=== PATIENT | female | born 1990 | race African-American/Black ===

== ENCOUNTER 2016-10-24 15:37 | Emergency (ER) | payer OTHER ==
[~2016-10-24] VITALS: Ht 160 cm; Wt 66.5 kg
[~2016-10-24 15:37] MED LIST: ATIVAN1 MG PO; BACTRIM,SEPT1 TABLET PO; DILAUDID2 MG PO; KEFLEX500 MG PO; NO HOME MEDS; NORCO 5/3251 TABLET PO; PERCOCET 5/31 TABLET PO; PREDNISONE20 MG PO; TRI-PREVIFEM1 EACH PO; VENTOLIN HFA18 GM IH; XEROFORM PETRO1 EAC4 TP; ZOFRAN ODT4 MG PO
[2016-10-24 15:57] VITALS: BP 143/98
[2016-10-24] MEDS ORDERED: TRI-ESTARYLLA1 EACH PO (18:41)
[2016-10-24] MEDS ORDERED: NORCO 7.5/321 TABLET PO (19:03)
[2016-10-24] MEDS ORDERED: MOTRIN800 MG PO (19:03)
[2016-10-24] MEDS ORDERED: VIBRAMYCIN100 MG PO (19:03)
== END 2016-10-24 19:43 | disposition home or self-care (01) ==
LOC: EME 15:37
PROC: 0H9CXZZ Drainage of Left Upper Arm Skin, External Approach (ICD-10-PCS; principal; 2016-10-24)
DX: L73.2 Hidradenitis suppurativa (principal)
CPT/HCPCS: 87070; 87075; 87076; 87205; 99281; 99284

== ENCOUNTER 2016-10-26 10:02 | Emergency (ER) | payer OTHER ==
[~2016-10-26] VITALS: Ht 160 cm; Wt 66.5 kg
[~2016-10-26 10:02] MED LIST changes: +MOTRIN800 MG PO; +NORCO 7.5/321 TABLET PO; +TRI-ESTARYLLA1 EACH PO; +VIBRAMYCIN100 MG PO
[2016-10-26 10:14] VITALS: BP 125/73
== END 2016-10-26 11:54 | disposition home or self-care (01) ==
LOC: EME 10:02
DX: Z48.01 Encounter for change or removal of surgical wound dressing (principal); L02.412 Cutaneous abscess of left axilla; Z72.0 Tobacco use
CPT/HCPCS: 99281; 99283

== ENCOUNTER 2017-01-08 09:55 | Day surgery (SDC) | payer OTHER ==
[~2017-01-08] VITALS: Ht 162.6 cm; Wt 66.7 kg
[~2017-01-08 09:55] MED LIST changes: +ORTHO CYCLEN1 TABLET PO
[2017-01-08 10:24] VITALS: BP 103/69
[2017-01-08] MEDS ORDERED: PERCOCET 5/31 TABLET PO (14:13)
[2017-01-08 15:00] VITALS: BP 108/69
[2017-01-08 15:25] VITALS: BP 111/69
== END 2017-01-08 15:38 | disposition home or self-care (01) ==
LOC: SDC 09:55
PROC: 0JBF0ZZ Excision of Left Upper Arm Subcutaneous Tissue and Fascia, Open Approach (ICD-10-PCS; principal; 2017-01-08)
DX: L73.2 Hidradenitis suppurativa (principal); G47.30 Sleep apnea, unspecified; J45.909 Unspecified asthma, uncomplicated; Z72.0 Tobacco use; Z80.0 Family history of malignant neoplasm of digestive organs; Z82.5 Family history of asthma and other chronic lower respiratory diseases; Z82.49 Family history of ischemic heart disease and other diseases of the circulatory system; Z80.1 Family history of malignant neoplasm of trachea, bronchus and lung
CPT/HCPCS: 88305; J0690; J1100; J1885; J2405; J3010

== ENCOUNTER 2017-01-14 09:23 | Emergency (ER) | payer OTHER ==
[~2017-01-14] VITALS: Ht 160 cm; Wt 67.4 kg
[2017-01-14 09:58] LABS: EOSINOPHIL (%) 0.1 % (0-5); HEMATOCRIT 37.4 % (36.0-46.0); IMMATURE GRANULOCYTE (%) 1.1 % (0.0-0.7); IMMATURE GRANULOCYTE COUNT 0.2 K/uL; INSTRUMENT ABS NEUTROPHIL CT 16.2 K/uL; LYMPHOCYTE COUNT 1.3 K/uL (1.0-2.8); MCH 31.3 PG (29.0-34.0); MCV 92.1 FL (83-99); MONOCYTE (%) 6.7 % (3-12); MONOCYTE COUNT 1.3 K/uL (0-0.8); NEUTROPHIL (%) 85.2 % (45-76); NEUTROPHIL COUNT 16.2 K/uL (1.8-6.4); PLATELET COUNT 293 K/uL (156-360); RBC DIS.WIDTH-CV 11.5 % (11.8-14.6); RBC DIS.WIDTH-SD 39.4 % (39-53); RED BLOOD COUNT 4.06 M/uL (3.80-5.20)
[2017-01-14 10:01] LABS: WHITE BLOOD COUNT 18.9 K/uL (4.1-10.2)
[2017-01-14 10:13] LABS: CHLORIDE 100 mEq/L (99-109); POTASSIUM 4.2 mEq/L (3.7-5.4); SODIUM 132 mEq/L (136-147)
[2017-01-14 10:15] LABS: GLUCOSE 107 mg/dL (70-99)
[2017-01-14 10:16] LABS: ANION GAP 9 MEQ/L (2-14)
[2017-01-14 10:19] LABS: GFR ESTIMATE (CALCULATED) > 59 mL/min/
[2017-01-14 10:20] LABS: UREA NITROGEN (BUN) 10 mg/dL (9-23)
[2017-01-14 11:27] LABS: TROP-I INTERPRETATION NEGATIVE; TROPONIN-I < 0.01 ng/mL (0.0-0.30)
[2017-01-14 12:04] LABS: ADD MIUA? NO; BILIRUBIN NEGATIVE; BLOOD NEGATIVE; COLOR YELLOW ((YELLOW)); GLUCOSE (STRIP) NEGATIVE; KETONES NEGATIVE; LEUKOCYTES NEGATIVE; NITRITE NEGATIVE; PROTEIN (STRIP) NEGATIVE; UCUL ADDED? NO; UROBILINOGEN 0.2 MG/DL (0.2-1.0)
[2017-01-14] MEDS ORDERED: BACTRIM,SEPT1 TABLET PO (16:24)
[2017-01-14] MEDS ORDERED: KEFLEX500 MG PO (16:24)
[2017-01-14 16:39] VITALS: BP 111/69
== END 2017-01-14 16:41 | disposition home or self-care (01) ==
LOC: EME 09:23
PROVIDERS: Emergency Medicine
PROC: 0H9CXZZ Drainage of Left Upper Arm Skin, External Approach (ICD-10-PCS; principal; 2017-01-14)
DX: L76.34 Postprocedural seroma of skin and subcutaneous tissue following other procedure (principal); L08.9 Local infection of the skin and subcutaneous tissue, unspecified; Y83.8 Other surgical procedures as the cause of abnormal reaction of the patient, or of later complication, without mention of misadventure at the time of the procedure; J45.909 Unspecified asthma, uncomplicated; G47.30 Sleep apnea, unspecified; Z87.891 Personal history of nicotine dependence
CPT/HCPCS: 71020; 71275; 80048; 81003; 83605; 84484; 85025; 93005; 99281; 99285

== ENCOUNTER 2018-03-17 07:00 | Emergency (ER) | payer BC ==
[~2018-03-17] VITALS: Ht 160 cm; Wt 68.9 kg
[2018-03-17 07:38] LABS: HEMOGLOBIN 13.4 G/DL (11.9-15.5); MCH 32.4 PG (29.0-34.0); MCHC 34.4 G/DL (30.0-36.0); MCV 94.2 FL (83-99); PLATELET COUNT 313 K/uL (156-360); RBC DIS.WIDTH-CV 11.7 % (11.8-14.6); RBC DIS.WIDTH-SD 40.3 % (39-53); RED BLOOD COUNT 4.14 M/uL (3.80-5.20); WHITE BLOOD COUNT 9.1 K/uL (4.1-10.2)
[2018-03-17 07:51] LABS: D-DIMER ELISA < 150.00 ng/mLDDU (<230)
[2018-03-17 08:01] LABS: CHLORIDE 107 MEQ/L (99-109); POTASSIUM 4.2 MEQ/L (3.7-5.4); SODIUM 141 MEQ/L (136-147)
[2018-03-17 08:07] LABS: CREATININE 0.7 MG/DL (0.6-1.3); GFR ESTIMATE (CALCULATED) > 59 mL/min/; GLUCOSE 72 mg/dL (70-99); UREA NITROGEN (BUN) 10 mg/dL (9-23)
[2018-03-17 08:11] LABS: TROP-I INTERPRETATION NEGATIVE; TROPONIN-I 0.01 ng/mL (0.0-0.30)
[2018-03-17 08:12] LABS: QUANTITATIVE HCG < 4.0 MIU/ML
[2018-03-17] MEDS ORDERED: NAPROXEN500 MG PO (08:33)
[2018-03-17] MEDS ORDERED: PROVENTIL HFA6.7 GM IH (08:34)
[2018-03-17 08:52] VITALS: BP 128/66
== END 2018-03-17 08:52 | disposition home or self-care (01) ==
LOC: EME 07:00
PROVIDERS: Physician Assistant
DX: R07.89 Other chest pain (principal); R42 Dizziness and giddiness; R06.02 Shortness of breath; J45.909 Unspecified asthma, uncomplicated; Z79.3 Long term (current) use of hormonal contraceptives; Z87.891 Personal history of nicotine dependence
CPT/HCPCS: 71046; 80048; 84484; 84702; 85027; 85379; 93005; 99281; 99285